=== PATIENT | female | born 1960 | race Caucasian/White ===

== ENCOUNTER → 2023-10-10 16:55 | Outpatient (REF) | payer BC, SELFPAY ==
[2023-10-10 19:24] LABS: Urine Albumin Negative (Neg - Trace); Urine Bilirubin Negative (Negative); Urine Character Slightly Cloudy (Clear); Urine Color Yellow; Urine Glucose Negative (Negative); Urine Ketone Negative (Negative); Urine Leukocyte 2+ (Negative); Urine Nitrite Negative (Negative); Urine Occult Blood Negative (Negative); Urine Specific Gravity 1.005 (<1.030); Urine Urobilinogen Negative (Neg - 1+); Urine pH 6.5 (5.0-9.0)
[2023-10-10 19:25] LABS: % Basophils 0.5 % (0-2); % Eosinophils 0.5 % (0-6); % Immature Granulocytes 0.4 % (0-0.5); % Lymphocytes 13.9 % (20.5-51.1); % Monocytes 6.1 % (1.7-9.3); % Neutrophils 78.6 % (42.2-75.2); Absolute Basophils 0.1 10^3/uL (0-0.2); Absolute Eosinophils 0.1 10^3/uL (0-0.7); Absolute Lymphocytes 1.4 10^3/uL (1.2-3.4); Absolute Monocytes 0.6 10^3/uL (0.1-0.6); Hematocrit 44.4 % (37.0-47.0); Hemoglobin 14.7 g/dL (12.0-16.0); Mean Corp Hgb Conc. 33.1 g/dL (33.0-37.0); Mean Corpuscular Hgb 33.3 pg (27.0-31.0); Mean Corpuscular Volume 100.7 fL (81.0-99.0); Mean Platelet Volume 9.5 fL (7.4-10.4); Nucleated Red Blood Cells % 0 %; Platelet Count 332 10^3/uL (130-400); Red Blood Cell Count 4.41 10^6/uL (4.20-5.40); White Blood Cell Count 10.2 10^3/uL (4.8-10.8)
[2023-10-10 19:33] LABS: ALT (SGPT) 37 U/L (0-35); AST (SGOT) 34 U/L (14-36); Albumin 4.4 g/dl (3.5-5.0); Alkaline Phosphatase 219 U/L (38-126); Blood Urea Nitrogen 12 mg/dl (7-17); Calcium 9.6 mg/dl (8.4-10.2); Carbon Dioxide 28 mmol/L (22-30); Chloride 104 mmol/L (98-107); Glucose 106 mg/dl (70-99); Potassium 4.7 mmol/L (3.5-5.1); Sodium 137 mmol/L (135-145); Total Bilirubin 0.8 mg/dl (0.2-1.3); Total Protein 7.6 g/dl (6.3-8.2); eGFR > 60.00
[2023-10-10 19:44] LABS: Urine Red Blood Cell None Seen /HPF (0-2); Urine Squamous Cell >30 /LPF (Few)
== END ==
LOC: CLAB 16:55
PROVIDERS: ATTENDING PHYSICIAN Family Medicine
DX: R10.31 Right lower quadrant pain (principal)
CPT/HCPCS: 80053; 81003; 81015; 85025

== ENCOUNTER 2023-11-26 06:36 | Day surgery (SDC) | payer BC, SELFPAY ==
[2023-11-26] MEDS: ALCAINE 0.5% EYE DROPS 2 DROP OPHTH (07:52)
[2023-11-26] MEDS: MYDRIACYL 1 DROP OPHTH (07:53)
[2023-11-26] MEDS: PRED FORTE 1% EYE DROPS 1 DROP OPHTH (07:53)
[2023-11-26] MEDS: POLYTRIM OPHTHALMIC SOLUTION 1 DROP OPHTH (07:54)
[2023-11-26] MEDS: NEO-SYNEPHRINE 2.5% OPH SOL. 1 DROP OPHTH (07:54)
[2023-11-26] MEDS: ACUVAIL 3 DROPS OPHTH (07:55)
[2023-11-26] MEDS: CYCLOGYL 1% EYE DROPS 1 DROP OPHTH (07:55)
[2023-11-26 07:56] VITALS: BMI 41.2
[2023-11-26] MEDS: AKTEN OPHTHALMIC GEL 1 ML OPHTH (07:56)
[2023-11-26] MEDS: NORMOSOL-R 1000 IV (07:56)
[2023-11-26 07:59] VITALS: BMI 41.2
[2023-11-26 08:02] VITALS: BP 180/104
[2023-11-26 09:26] VITALS: BP 170/91
== END 2023-11-26 10:00 | disposition home or self-care (01) ==
LOC: SDS 06:36
PROVIDERS: ATTENDING PHYSICIAN Ophthalmology
DX: H25.811 Combined forms of age-related cataract, right eye (principal)
CPT/HCPCS: 66984

== ENCOUNTER → 2023-12-10 06:13 | Day surgery (SDC) | payer BC, SELFPAY ==
[2023-12-10 06:35] VITALS: BMI 40.5
[2023-12-10 06:36] VITALS: BP 190/108
[2023-12-10] MEDS: AKTEN OPHTHALMIC GEL 1 ML OPHTH (06:43)
[2023-12-10] MEDS: PRED FORTE 1% EYE DROPS 1 DROP OPHTH (06:44)
[2023-12-10] MEDS: ALCAINE 0.5% EYE DROPS 1 DROP OPHTH (06:44)
[2023-12-10] MEDS: NEO-SYNEPHRINE 2.5% OPH SOL. 1 DROP OPHTH (06:45)
[2023-12-10] MEDS: POLYTRIM OPHTHALMIC SOLUTION 1 DROP OPHTH (06:45)
[2023-12-10] MEDS: MYDRIACYL 1 DROP OPHTH (06:46)
[2023-12-10] MEDS: CYCLOGYL 1% EYE DROPS 1 DROP OPHTH (06:46)
[2023-12-10] MEDS: ACUVAIL 3 DROPS OPHTH (06:47)
[2023-12-10] MEDS: NORMOSOL-R 1000 IV (06:53)
[2023-12-10 07:50] VITALS: BP 173/92
[2023-12-10 08:05] VITALS: BP 149/85
== END ==
LOC: SDS 06:13
PROVIDERS: ATTENDING PHYSICIAN Ophthalmology
DX: H25.812 Combined forms of age-related cataract, left eye (principal)
CPT/HCPCS: 66984

== ENCOUNTER → 2024-04-10 07:11 | Outpatient (REF) | payer BC, SELFPAY ==
[2024-04-10 07:51] LABS: Urine Albumin Negative (Neg - Trace); Urine Bilirubin Negative (Negative); Urine Character Clear (Clear); Urine Color Yellow; Urine Glucose Negative (Negative); Urine Ketone Negative (Negative); Urine Leukocyte Trace (Negative); Urine Nitrite Negative (Negative); Urine Occult Blood Negative (Negative); Urine Specific Gravity 1.005 (<1.030); Urine Urobilinogen Negative (Neg - 1+)
[2024-04-10 07:52] LABS: % Basophils 1.1 % (0-2); % Immature Granulocytes 0.2 % (0-0.5); % Monocytes 7.8 % (1.7-9.3); % Neutrophils 54.9 % (42.2-75.2); Absolute Basophils 0.1 10^3/uL (0-0.2); Absolute Eosinophils 0.1 10^3/uL (0-0.7); Absolute Lymphocytes 1.9 10^3/uL (1.2-3.4); Absolute Monocytes 0.4 10^3/uL (0.1-0.6); Absolute Neutrophils 3.1 10^3/uL (1.4-6.5); Hematocrit 40.3 % (37.0-47.0); Hemoglobin 14.1 g/dL (12.0-16.0); Mean Corpuscular Hgb 33.4 pg (27.0-31.0); Mean Corpuscular Volume 95.5 fL (81.0-99.0); Mean Platelet Volume 9.6 fL (7.4-10.4); Nucleated Red Blood Cells % 0 %; Platelet Count 298 10^3/uL (130-400); Red Blood Cell Count 4.22 10^6/uL (4.20-5.40); Red Cell Dist. Width 12.7 % (11.5-14.5); White Blood Cell Count 5.6 10^3/uL (4.8-10.8)
[2024-04-10 07:59] LABS: Urine Bacteria Few (Negative); Urine Red Blood Cell 0-2 /HPF (0-2); Urine Squamous Cell 16-20 /LPF (Few)
[2024-04-10 08:18] LABS: ALT (SGPT) 31 U/L (0-35); AST (SGOT) 33 U/L (14-36); Albumin 4.7 g/dl (3.5-5.0); Alkaline Phosphatase 132 U/L (38-126); Blood Urea Nitrogen 14 mg/dl (7-17); Calcium 9.8 mg/dl (8.4-10.2); Carbon Dioxide 26 mmol/L (22-30); Chloride 105 mmol/L (98-107); Glucose 112 mg/dl (70-99); HDL Cholesterol 98 mg/dl; LDL Cholesterol, Calculated 149 mg/dl; Potassium 4.6 mmol/L (3.5-5.1); Sodium 138 mmol/L (135-145); Total Bilirubin 0.7 mg/dl (0.2-1.3); Total Cholesterol 270 mg/dl (50-199); Total Protein 7.5 g/dl (6.3-8.2); Triglyceride 115 mg/dl (10-149); Very Low Density Lipoprotein 23 mg/dl (0-30); eGFR > 60.00
[2024-04-10 08:30] LABS: Glycohemoglobin (HgbA1c) 5.4 % (4.0-5.6)
[2024-04-10 08:35] LABS: Vitamin D, 25-OH*** 40.9 ng/mL (30-80)
[2024-04-10 08:48] LABS: TSH 1.59 uIU/ml (0.47-4.68)
== END ==
LOC: REG 07:11
PROVIDERS: ATTENDING PHYSICIAN Family Medicine
DX: Z00.00 Encounter for general adult medical examination without abnormal findings (principal); I10 Essential (primary) hypertension; E78.2 Mixed hyperlipidemia; E66.9 Obesity, unspecified; E66.01 Morbid (severe) obesity due to excess calories; E55.9 Vitamin D deficiency, unspecified; D75.89 Other specified diseases of blood and blood-forming organs; D72.819 Decreased white blood cell count, unspecified; E53.8 Deficiency of other specified B group vitamins; Z85.42 Personal history of malignant neoplasm of other parts of uterus; R73.01 Impaired fasting glucose
CPT/HCPCS: 36415; 80053; 80061; 81003; 81015; 82306; 83036; 84443; 85025

== ENCOUNTER → 2024-06-03 08:49 | Outpatient (REF) | payer BC, SELFPAY | LOC: RAD 08:49 | PROVIDERS: ATTENDING PHYSICIAN Family Medicine | DX: R10.11 Right upper quadrant pain (principal) | CPT/HCPCS: 76700 ==

== ENCOUNTER → 2024-08-04 06:49 | Outpatient (REF) | payer BC, SELFPAY ==
[2024-08-04 08:41] LABS: ALT (SGPT) 36 U/L (0-35); AST (SGOT) 34 U/L (14-36); Albumin 4.6 g/dl (3.5-5.0); Alkaline Phosphatase 161 U/L (38-126); Blood Urea Nitrogen 18 mg/dl (7-17); Calcium 9.8 mg/dl (8.4-10.2); Carbon Dioxide 26 mmol/L (22-30); Chloride 106 mmol/L (98-107); Glucose 99 mg/dl (70-99); Potassium 4.5 mmol/L (3.5-5.1); Sodium 142 mmol/L (135-145); Total Bilirubin 0.5 mg/dl (0.2-1.3); Total Protein 7.4 g/dl (6.3-8.2); eGFR > 60.00
== END ==
LOC: REG 06:49
PROVIDERS: ATTENDING PHYSICIAN Surgery; FAMILY PHYSICIAN Family Medicine
DX: K80.20 Calculus of gallbladder without cholecystitis without obstruction (principal); R10.84 Generalized abdominal pain; Z85.42 Personal history of malignant neoplasm of other parts of uterus; Z01.812 Encounter for preprocedural laboratory examination
CPT/HCPCS: 36415; 80053

== ENCOUNTER → 2024-08-11 07:42 | Outpatient (REF) | payer BC, SELFPAY | LOC: RAD 07:42 | PROVIDERS: ATTENDING PHYSICIAN Surgery; FAMILY PHYSICIAN Family Medicine | DX: K80.20 Calculus of gallbladder without cholecystitis without obstruction (principal); R10.84 Generalized abdominal pain; Z85.42 Personal history of malignant neoplasm of other parts of uterus | CPT/HCPCS: 74177; Q9967 ==

== ENCOUNTER 2024-10-10 06:13 | Day surgery (SDC) | payer BC, SELFPAY ==
[2024-10-10] VITALS (11 sets, daily range): BP systolic 120–190; BP diastolic 63–105; BMI 41.5
[2024-10-10] MEDS: NORMOSOL-R/PLASMALYTE-A 1000 IV (06:40)
--- NOTE | 2024-10-10 06:41 | HP.FOC2 ---
Focused History & Physical
Chief Complaint
HPI:
Chief Complaint: Symptomatic cholelithiasis
HPI / Indication for Planned Procedure: 64-year-old female with a 1 year history of intermittent postprandial upper abdominal discomfort. Bandlike tightness and discomfort in the epigastrium and right upper quadrant after eating meals. Often
associated nausea but no vomiting. She has been avoiding oily/fatty food content which has helped alleviate symptoms to a degree but not fully eliminated them. Happens at various times throughout the day. Symptoms are alleviated when
fasting/between meals.
Relevant Past Medical History: Other (Obesity, GERD, hyperlipidemia, anxiety, low B12, history of endometrial CA)
Relevant Social History: Negative
Relevant Family History: Negative
Relevant Past Surgical History: Positive for (D and E, RAL REFUGIO, salpingo-oophorectomy and lymph node biopsies, cataracts)
Review of Systems
Review of Pertinent Systems: All Systems Negative
Medication
See Medication form for detailed medications: Yes
Medication List (including Herbals & OTC):
losartan 100 mg tablet 100 mg PO DAILY 07/21/22
melatonin 5 mg tablet 5 mg PO HS PRN insomnia 07/21/22
trazodone 50 mg tablet 50 mg PO HS 07/21/22
fluticasone propionate 50 mcg/actuation nasal spray,suspension (Flonase Allergy Relief) 1 spray intranasal DAILY 11/21/23
Optcon Eye Drops 1 drp BOTH EYES PRN PRN dry eye 10/09/24
carboxymethylcellulose sodium 0.5 % eye drops (Refresh Tears) 1 drp ophthalmic (eye) PRN PRN dry eye 10/09/24
ibuprofen 400 mg tablet 400 mg PO Q6H PRN pain 10/09/24
metoprolol succinate 25 mg tablet,extended release 24 hr 12.5 mg PO QPM 10/09/24
rosuvastatin 10 mg tablet 10 mg PO QPM 10/09/24
Medications Reviewed: Yes
Allergies and Reactions
Patient has Allergies: No
Noted Allergies and Reactions:
Allergy/AdvReac Type Severity Reaction Status Date / Time
No Known Allergies Allergy Verified 10/09/24 08:04
Pertinent Physical Exam
All Other Systems: Negative
Head/Neck: Normal
Lungs: Normal
Heart: Normal
Abdomen: Normal
Extremities: Normal
Neurological: Normal
Diagnosis / Assessment
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
Plan / Procedure
Laparoscopic cholecystectomy with intraoperative cholangiogram
Anesthesia/Sedation to be done by Anesthesia Provider: Yes
[2024-10-10] MEDS: TYLENOL 1000 MG PO (06:42)
--- NOTE | 2024-10-10 06:43 | W.SUR.PREOP ---
Pre-Operative Surgical Note
-
I have examined this patient prior to the performance of the scheduled procedure.
The patient's condition is unchanged from the time of the current History and
Physical and the patient is able to undergo the scheduled procedure.
[2024-10-10] MEDS: LOPRESSOR 12.5 MG PO (07:08)
--- NOTE | 2024-10-10 08:34 | W.IMMPOSTOP ---
Addendum entered and electronically signed by Hao Aguirre MD 10/10/24 08:52:
#[id number]
Original Note:
Surgical Immed Post Op Note
-
Primary Surgeon: Hao Aguirre
Assisting Surgeon: Won JOHNSON; BRIEN Haley
Pre-op Diagnosis: Symptomatic cholelithiasis
Post-op Diagnosis: Symptomatic cholelithiasis, abnormal chronic calculus cholecystitis
Procedure Performed: Laparoscopic cholecystectomy with intraoperative cholangiogram
Anesthesia Type: GETA +0.25% Marcaine
Specimen / Cultures: Gallbladder
Estimated Blood Loss: 4 mL
Complications: None immediate
Operative Findings: Gallbladder with adhesions, small stones. Intraoperative cholangiogram normal.
[2024-10-10] MEDS: DILAUDID 0.5 MG IV (08:51)
== END 2024-10-10 10:50 | disposition home or self-care (01) ==
LOC: SDS 06:13
PROVIDERS: ATTENDING PHYSICIAN Surgery
DX: K80.10 Calculus of gallbladder with chronic cholecystitis without obstruction (principal); K66.0 Peritoneal adhesions (postprocedural) (postinfection)
CPT/HCPCS: 47563; 88304; 74300; 76000; A4300

== ENCOUNTER → 2025-04-29 06:54 | Outpatient (REF) | payer BC, SELFPAY ==
[2025-04-29 07:56] LABS: Urine Character Clear (Clear)
[2025-04-29 07:59] LABS: Hematocrit 37.8 % (37.0-47.0); Hemoglobin 12.8 g/dL (12.0-16.0); Mean Corp Hgb Conc. 33.9 g/dL (33.0-37.0); Mean Corpuscular Volume 98.2 fL (81.0-99.0); Nucleated Red Blood Cells % 0 %; Platelet Count 276 10^3/uL (130-400); Red Cell Dist. Width 12.6 % (11.5-14.5)
[2025-04-29 08:44] LABS: Urine Squamous Cell >30 /LPF (Few)
[2025-04-29 08:45] LABS: Urine Red Blood Cell 0-2 /HPF (0-2); Urine Urothelial Cell 0-2 /LPF (FEW)
[2025-04-29 10:31] LABS: Glycohemoglobin (HgbA1c) 5.4 % (4.0-5.6)
[2025-04-29 10:58] LABS: ALT (SGPT) 39 U/L (0-35); AST (SGOT) 31 U/L (14-36); Albumin 4.5 g/dl (3.5-5.0); Alkaline Phosphatase 138 U/L (38-126); Blood Urea Nitrogen 17 mg/dl (7-17); Calcium 9.8 mg/dl (8.4-10.2); Carbon Dioxide 30 mmol/L (22-30); Chloride 106 mmol/L (98-107); Glucose 101 mg/dl (70-99); HDL Cholesterol 87 mg/dl; LDL Cholesterol, Calculated 83 mg/dl; Potassium 5.0 mmol/L (3.5-5.1); Sodium 141 mmol/L (135-145); Total Protein 7.4 g/dl (6.3-8.2); Very Low Density Lipoprotein 21 mg/dl (0-30); eGFR > 60.00
[2025-04-29 11:15] LABS: Vitamin D, 25-OH*** 33.3 ng/mL (30-80)
[2025-04-29 11:29] LABS: TSH 1.66 uIU/ml (0.47-4.68)
== END ==
LOC: REG 06:54
PROVIDERS: ATTENDING PHYSICIAN Family Medicine
DX: Z00.00 Encounter for general adult medical examination without abnormal findings (principal); I10 Essential (primary) hypertension; E78.2 Mixed hyperlipidemia; E55.9 Vitamin D deficiency, unspecified; R73.03 Prediabetes
CPT/HCPCS: 36415; 80053; 80061; 81003; 81015; 82306; 83036; 84443; 85025